=== PATIENT | female | born 1965 | race Caucasian/White ===

== ENCOUNTER 2024-07-22 07:36 | Outpatient (CLI) | payer OTHER | END 2024-07-22 07:37 | disposition home or self-care (01) | LOC: CSHCT 07:36 | PROVIDERS: ATTEND Internal Medicine Hematology & Oncology | DX: J98.59 Other diseases of mediastinum, not elsewhere classified (principal); R19.09 Other intra-abdominal and pelvic swelling, mass and lump; C50.311 Malignant neoplasm of lower-inner quadrant of right female breast | CPT/HCPCS: 71260; 74177 ==